=== PATIENT | male | born 1980 | race American Indian/Alaskan Native ===

== ENCOUNTER 2016-12-25 21:47 | Inpatient (IN) | payer MEDICAID ==
[2016-12-25] MEDS ORDERED: Albuterol/Ipratropium 3.0-0.5 MG/3 ML Neb Soln NEB ONE (22:03)
[2016-12-25] MEDS ORDERED: Albuterol 0.083% 2.5 MG/3 ML Neb Soln NEB ONE (22:47)
[2016-12-25] MEDS ORDERED: predniSONE 20 MG Tab PO ONE (22:47)
[2016-12-25] MEDS ORDERED: Amoxicillin/Clavulanate K 875-125 MG Tab PO ONE (22:49)
--- NOTE | 2016-12-25 23:23 | EDM.PDOC ---
ED HPI GENERAL MEDICAL PROBLEM - General Chief Complaint: Respiratory Problem Stated Complaint: hard time breathing Time Seen by Provider: 12/25/16 22:10 Source of Information: Reports: Patient History Limitations: Reports: No Limitations - History of Present Illness INITIAL COMMENTS - FREE TEXT/NARRATIVE: c/o flare of asthma starting friday. Uncontrolled with inhaler. Chills no fever, Cough occasional productive Duration: Week(s): Location: Reports: Chest Severity: Moderate Associated Symptoms: Reports: Cough, Shortness of Breath - Related Data Allergies Allergy/AdvReac Type Severity Reaction Status Date / Time No Known Allergies Allergy Verified 12/25/16 22:00 Home Meds: Home Meds Albuterol Sulfate [Ventolin Hfa] 0 gm IH ASDIRECTED 12/25/16 [History] Fluticasone/Salmeterol [Advair Diskus 100-50] 1 puff INH ASDIRECTED 12/25/16 [ History] Montelukast Sodium [Singulair] 0 mg PO ASDIRECTED 12/25/16 [History] Past Medical History HEENT History: Reports: None Cardiovascular History: Reports: None Respiratory History: Reports: Asthma Gastrointestinal History: Reports: None Genitourinary History: Reports: None Musculoskeletal History: Reports: None Neurological History: Reports: None Psychiatric History: Reports: None Endocrine/Metabolic History: Reports: None Hematologic History: Reports: None Immunologic History: Reports: None Oncologic (Cancer) History: Reports: None Dermatologic History: Reports: None Social & Family History - Tobacco Use Smoking Status *Q: Never Smoker - Caffeine Use Caffeine Use: Reports: Coffee - Recreational Drug Use Recreational Drug Use: No ED ROS GENERAL - Review of Systems Review Of Systems: See Below Constitutional: Reports: Chills HEENT: Reports: Sinus Problem Respiratory: Reports: Shortness of Breath, Wheezing, Cough Cardiovascular: Reports: No Symptoms Endocrine: Reports: No Symptoms GI/Abdominal: Reports: No Symptoms Musculoskeletal: Reports: No Symptoms Skin: Reports: No Symptoms Neurological: Reports: No Symptoms Psychiatric: Reports: No Symptoms ED EXAM, GENERAL - Physical Exam Exam: See Below Exam Limited By: No Limitations General Appearance: Alert, Moderate Distress Eye Exam: Bilateral Eye: PERRL Ears: Normal External Exam, Normal TMs Nose: Normal Inspection Throat/Mouth: Normal Inspection Head: Atraumatic, Normocephalic Neck: Normal Inspection, Full Range of Motion Respiratory/Chest: Crackles (right), Wheezing. No: Normal Breath Sounds Cardiovascular: Regular Rate, Rhythm, Tachycardia Back Exam: Normal Inspection Extremities: Normal Inspection Neurological: Alert, Oriented, Normal Cognition Skin Exam: Warm, Dry, Intact, Normal Color, Tattoo(s) Course - Vital Signs Last Recorded V/S: Last Vital Signs Temp 100 F 12/26/16 02:02 Pulse 129 H 12/26/16 02:02 Resp 30 H 12/26/16 02:02 BP 140/77 12/26/16 02:02 Pulse Ox 95 12/26/16 02:02 - Orders/Labs/Meds Orders: Active Orders 24 hr Category Date Time Status RT Aerosol Therapy [RC] ASDIRECTED Care 12/25/16 22:03 Active RT Aerosol Therapy [RC] ASDIRECTED Care 12/25/16 22:47 Active RT Aerosol Therapy [RC] ASDIRECTED Care 12/26/16 01:04 Active CULTURE BLOOD [BC] Stat Lab 12/25/16 23:31 Received CULTURE BLOOD [BC] Stat Lab 12/25/16 23:40 Received Sodium Chloride 0.9% [Normal Saline] 1,000 ml Med 12/26/16 01:15 Active IV ASDIRECTED Blood Culture x2 Reflex Set [OM.PC] Stat Oth 12/25/16 23:24 Ordered Medication Orders Albuterol (Proventil Neb Soln) 2.5 mg NEB Q6H PRN PRN Reason: sob Albuterol/Ipratropium (Duoneb 3.0-0.5 Mg/3 Ml) 3 ml NEB Q8HRRT [facility] Budesonide (Pulmicort) 0.5 mg NEB BIDRT [facility] Docusate Sodium (Colace) 100 mg PO BID PRN PRN Reason: Constipation Enoxaparin Sodium (Lovenox) 40 mg SUBCUT DAILY JERMAINE Sodium Chloride (Normal Saline) 1,000 mls @ 125 mls/hr IV ASDIRECTED JERMAINE Last Admin: 12/26/16 02:33 Dose: 125 mls/hr Infusion: 12/26/16 02:16 Dose: 999 mls/hr Admin: 12/26/16 01:15 Dose: 999 mls/hr Azithromycin 500 mg/ Sodium (Chloride) 250 mls @ 250 mls/hr IV Q24H [facility] Last Admin: 12/26/16 03:38 Dose: 250 mls/hr Ceftriaxone Sodium 1 gm/ (Sodium Chloride) 50 mls @ 100 mls/hr IV Q24H [facility]INE Last Admin: 12/26/16 02:33 Dose: 100 mls/hr Lorazepam (Ativan) 1 mg PO Q6H PRN PRN Reason: Anxiety Methylprednisolone Sodium Succinate (Solu-Medrol) 40 mg IVPUSH Q8H [facility] Montelukast Sodium (Singulair) 10 mg PO DAILY JERMAINE Ondansetron HCl (Zofran Odt) 4 mg PO Q4H PRN PRN Reason: nausea, able to take PO Sodium Chloride (Saline Flush) 10 ml FLUSH ASDIRECTED PRN PRN Reason: Keep Vein Open Zolpidem Tartrate (Ambien) 5 mg PO BEDTIME PRN PRN Reason: Sleep Labs: Laboratory Tests 12/25/16 12/25/16 12/25/16 Range/Units 00:43 23:31 23:31 WBC 11.9 H (5.0-10.0) 10^3/uL RBC 5.09 (4.6-6.2) 10^6/uL Hgb 14.6 (14.0-18.0) g/dL Hct 44.8 (40.0-54.0) % MCV 88.0 (80-100) fL MCH 28.7 (27.0-34.0) pg MCHC 32.6 L (33.0-35.0) g/dL Plt Count 305 (150-450) 10^3/uL Neut % (Auto) 82.6 H (42.2-75.2) % Lymph % (Auto) 10.3 L (20.5-50.1) % [place] % (Auto) 5.5 (2-8) % Eos % (Auto) 1.3 (1.0-3.0) % Baso % (Auto) 0.3 (0.0-1.0) % D-Dimer, Quantitative 378 (0-400) ng/mL ABG pH (7.35-7.45) ABG pCO2 (35-45) mmHg ABG pO2 (70-100) mmHg ABG HCO3 (22-26) mmol/L ABG O2 Saturation (95-100) % ABG Base Excess ((-2)-(+3)) mmol/L Presley Test O2 Delivery Device Sodium 140 (135-145) mmol/L Potassium 4.3 (3.6-5.0) mmol/L Chloride 103 (101-111) mmol/L Carbon Dioxide 30.0 (21.0-31.0) mmol/L Anion Gap 11.3 BUN 9 (7-18) mg/dL Creatinine 0.8 (0.6-1.3) mg/dL Est Cr Clr Drug Dosing 130.54 mL/min Estimated GFR (MDRD) > 60 BUN/Creatinine Ratio 11.25 Glucose 116 H (74-105) mg/dL Calcium 8.8 (8.4-10.2) mg/dl Total Bilirubin 0.3 (0.2-1.0) mg/dL AST 32 (10-42) IU/L ALT 33 (10-60) IU/L Alkaline Phosphatase 61 (42-121) IU/L C-Reactive Protein (0.0-1.3) mg/dL Total Protein 7.7 (6.7-8.2) g/dl Albumin 3.9 (3.2-5.5) g/dl Globulin 3.8 Albumin/Globulin Ratio 1.03 12/25/16 12/26/16 Range/Units 23:31 01:00 WBC (5.0-10.0) 10^3/uL RBC (4.6-6.2) 10^6/uL Hgb (14.0-18.0) g/dL Hct (40.0-54.0) % MCV (80-100) fL MCH (27.0-34.0) pg MCHC (33.0-35.0) g/dL Plt Count (150-450) 10^3/uL Neut % (Auto) (42.2-75.2) % Lymph % (Auto) (20.5-50.1) % [place] % (Auto) (2-8) % Eos % (Auto) (1.0-3.0) % Baso % (Auto) (0.0-1.0) % D-Dimer, Quantitative (0-400) ng/mL ABG pH 7.43 (7.35-7.45) ABG pCO2 35 (35-45) mmHg ABG pO2 58 L (70-100) mmHg ABG HCO3 22.7 (22-26) mmol/L ABG O2 Saturation 91 L (95-100) % ABG Base Excess -1 ((-2)-(+3)) mmol/L Presley Test Positive O2 Delivery Device Nasal cannula Sodium (135-145) mmol/L Potassium (3.6-5.0) mmol/L Chloride (101-111) mmol/L Carbon Dioxide (21.0-31.0) mmol/L Anion Gap BUN (7-18) mg/dL Creatinine (0.6-1.3) mg/dL Est Cr Clr Drug Dosing mL/min Estimated GFR (MDRD) BUN/Creatinine Ratio Glucose (74-105) mg/dL Calcium (8.4-10.2) mg/dl Total Bilirubin (0.2-1.0) mg/dL AST (10-42) IU/L ALT (10-60) IU/L Alkaline Phosphatase (42-121) IU/L C-Reactive Protein 3.1 H (0.0-1.3) mg/dL Total Protein (6.7-8.2) g/dl Albumin (3.2-5.5) g/dl Globulin Albumin/Globulin Ratio Meds: Medications Generic Name Dose Route Start Last Admin Trade Name Freq PRN Reason Stop Dose Admin Albuterol 2.5 mg 12/26/16 02:00 Proventil Neb Soln NEB Q6H PRN sob Albuterol/Ipratropium 3 ml 12/26/16 07:00 Duoneb 3.0-0.5 Mg/3 Ml NEB Q8HRRT JERMAINE Budesonide 0.5 mg 12/26/16 07:00 Pulmicort NEB BIDRT JERMAINE Docusate Sodium 100 mg 12/26/16 02:02 Colace PO BID PRN Constipation Enoxaparin Sodium 40 mg 12/26/16 09:00 Lovenox SUBCUT DAILY JERMAINE Sodium Chloride 1,000 mls @ 125 mls/hr 12/26/16 01:15 12/26/16 02:33 Normal Saline IV 125 mls/hr ASDIRECTED JERMAINE Administration Azithromycin 500 mg/ Sodium 250 mls @ 250 mls/hr 12/26/16 03:00 12/26/16 03: 38 Chloride IV 250 mls/hr Q24H JERMAINE Administration Ceftriaxone Sodium 1 gm/ 50 mls @ 100 mls/hr 12/26/16 02:00 12/26/16 02:33 Sodium Chloride IV 100 mls/hr Q24H JER[facility]INE Administration Lorazepam 1 mg 12/26/16 01:58 Ativan PO Q6H PRN Anxiety Methylprednisolone Sodium Succinate 40 mg 12/26/16 07:00 Solu-Medrol IVPUSH Q8H JERMAINE Montelukast Sodium 10 mg 12/26/16 09:00 Singulair PO DAILY JERMAINE Ondansetron HCl 4 mg 12/26/16 02:02 Zofran Odt PO Q4H PRN nausea, able to take PO Sodium Chloride 10 ml 12/26/16 02:02 Saline Flush FLUSH ASDIRECTED PRN Keep Vein Open Zolpidem Tartrate 5 mg 12/26/16 02:02 Ambien PO BEDTIME PRN Sleep Discontinued Medications Generic Name Dose Route Start Last Admin Trade Name Freq PRN Reason Stop Dose Admin Acetaminophen 650 mg 12/25/16 23:24 12/25/16 23:43 Tylenol PO 12/25/16 23:25 650 mg NOW ONE Administration Albuterol 2.5 mg 12/25/16 22:47 12/25/16 23:[address] [facility] 12/25/16 22:48 2.5 mg ONETIME ONE Administration Albuterol 2.5 mg 12/26/16 01:04 12/26/16 01:[address] [facility] 12/26/16 01:05 2.5 mg ONETIME ONE Administration Albuterol/Ipratropium 3 ml 12/25/16 22:03 12/25/16 22:07 Duoneb 3.0-0.5 Mg/[address] [facility] 12/25/16 22:04 3 ml ONETIME ONE Administration Amoxicillin/Clavulanate Potassium 1 tab 12/25/16 22:49 12/25/16 23:23 Augmentin 875 Mg/125 Mg PO 12/25/16 22:50 1 tab ONETIME ONE Administration Sodium Chloride 1,000 mls @ 999 mls/hr 12/25/16 23:53 12/25/16 23:57 Normal Saline IV 12/26/16 00:53 999 mls/hr .BOLUS ONE Administration Ibuprofen 600 mg 12/26/16 00:27 12/26/16 00:33 Motrin PO 12/26/16 00:28 600 mg ONETIME ONE Administration Lorazepam 1 mg 12/26/16 00:27 12/26/16 00:33 Ativan IVPUSH 12/26/16 00:28 1 mg ONETIME ONE Administration Methylprednisolone Sodium Succinate 62.5 mg 12/26/16 01:10 12/26/16 01:15 Solu-Medrol IVPUSH 12/26/16 01:11 62.5 mg ONETIME ONE Administration Prednisone 40 mg 12/25/16 22:47 12/25/16 23:23 Prednisone PO 12/25/16 22:48 40 mg ONETIME ONE Administration - Re-Assessments/Exams Free Text/Narrative Re-Assessment/Exam: 12/26/16 01:42 fever uncontrolled with tylenol Ibuprofen given, brief responses to neb treatment, required additional. Tachy respirations and heartrate. 2 liters IVF in ED. Dr. Domonique ríos In ED to assess. Departure - Departure Time of Disposition: 01:35 Disposition: Admitted As Inpatient 65 Condition: undetermined Clinical Impression: Exacerbation of asthma URI (upper respiratory infection) Qualifiers: URI type: unspecified URI Qualified Code(s): J06.9 - Acute upper respiratory infection, unspecified - Discharge Information - My Orders Last 24 Hours: My Active Orders 12/25/16 22:03 RT Aerosol Therapy [RC] ASDIRECTED 12/25/16 22:47 RT Aerosol Therapy [RC] ASDIRECTED 12/25/16 23:24 Blood Culture x2 Reflex Set [OM.PC] Stat 12/25/16 23:31 CULTURE BLOOD [BC] Stat 12/25/16 23:40 CULTURE BLOOD [BC] Stat 12/26/16 01:04 RT Aerosol Therapy [RC] ASDIRECTED 12/26/16 01:15 Sodium Chloride 0.9% [Normal Saline] 1,000 ml IV ASDIRECTED - Assessment/Plan Last 24 Hours: My Active Orders 12/25/16 22:03 RT Aerosol Therapy [RC] ASDIRECTED 12/25/16 22:47 RT Aerosol Therapy [RC] ASDIRECTED 12/25/16 23:24 Blood Culture x2 Reflex Set [OM.PC] Stat 12/25/16 23:31 CULTURE BLOOD [BC] Stat 12/25/16 23:40 CULTURE BLOOD [BC] Stat 12/26/16 01:04 RT Aerosol Therapy [RC] ASDIRECTED 12/26/16 01:15 Sodium Chloride 0.9% [Normal Saline] 1,000 ml IV ASDIRECTED
[2016-12-25] MEDS ORDERED: Acetaminophen 325 MG Tab PO ONE (23:24)
[2016-12-25] MEDS ORDERED: Sodium Chloride 0.9% 1,000 ML IV ONE (23:53)
[2016-12-26 00:17] LABS: CHLORIDE,CL 103 mmol/L (101-111); SODIUM,NA 140 mmol/L (135-145)
[2016-12-26] MEDS ORDERED: Ibuprofen 600 MG Tab PO ONE (00:27)
[2016-12-26] MEDS ORDERED: LORazepam 2 MG/ML Syringe IVPUSH ONE (00:27)
[2016-12-26] MEDS ORDERED: Albuterol 0.083% 2.5 MG/3 ML Neb Soln NEB ONE (01:04)
[2016-12-26 01:07] LABS: BASE EXCESS ARTERIAL -1 mmol/L ((-2)-(+3)); BICARBONATE,ARTERIAL 22.7 mmol/L (22-26); O2 DELIVERY DEVICE NASAL CANNULA; O2 SATURATION ARTERIAL 91 % (95-100); PCO2 ARTERIAL 35 mmHg (35-45); PO2 ARTERIAL 58 mmHg (70-100)
[2016-12-26 01:10] LABS: ALLEN TEST POSITIVE
[2016-12-26] MEDS ORDERED: methylPREDNISolone Sodium Succinate 125 MG/2 ML SDV IVPUSH ONE (01:10)
[2016-12-26] MEDS: Sodium Chloride 0.9% 1,000 ML IV SCH ×4 (01:15→20:17)
[2016-12-26] MEDS ORDERED: Albuterol 0.083% 2.5 MG/3 ML Neb Soln NEB PRN (02:00)
[2016-12-26] MEDS ORDERED: Ondansetron 4 MG Tab.DIS PO PRN (02:02)
[2016-12-26] MEDS ORDERED: Zolpidem 5 MG Tab PO PRN (02:02)
[2016-12-26] MEDS ORDERED: Docusate Sodium 100 MG Cap PO PRN (02:02)
--- NOTE | 2016-12-26 02:16 | PCM.HP ---
H&P History of Present Illness - General Date of Service: 12/26/16 Admit Problem/Dx: Admission Diagnosis/Problem Admission Diagnosis/Problem Asthma 36-year-old gentleman with a history of asthma and anxiety presented with shortness of breath, cough, subjective fever. Source of Information: Patient - History of Present Illness Initial Comments - Free Text/Narative: Symptoms started on 20 December. He has no sick contact at home. He Tylenol at home to help with his symptoms. In the next few days symptoms on and off better or worse he tried to go to her that because of shortness of breath he had to go home early. He reports a cough and green sputum. He has chest pain when coughing but otherwise no chest pain no abdominal pain. He had one episode of loose bowel movement. He has no lower extremity swelling. The shortness of breath the past continued and the patient came to the emergency room. - Related Data Allergies/Adverse Reactions: Allergies Allergy/AdvReac Type Severity Reaction Status Date / Time No Known Allergies Allergy Verified 12/25/16 22:00 Home Medications: Home Meds Albuterol Sulfate [Ventolin Hfa] 0 gm IH ASDIRECTED 12/25/16 [History] Fluticasone/Salmeterol [Advair Diskus 100-50] 1 puff INH ASDIRECTED 12/25/16 [ History] Montelukast Sodium [Singulair] 0 mg PO ASDIRECTED 12/25/16 [History] Past Medical History HEENT History: Reports: None Cardiovascular History: Reports: None Respiratory History: Reports: Asthma Gastrointestinal History: Reports: None Genitourinary History: Reports: None Musculoskeletal History: Reports: None Neurological History: Reports: None Psychiatric History: Reports: None Endocrine/Metabolic History: Reports: None Hematologic History: Reports: None Immunologic History: Reports: None Oncologic (Cancer) History: Reports: None Dermatologic History: Reports: None Social & Family History - Tobacco Use Smoking Status *Q: Never Smoker - Caffeine Use Caffeine Use: Reports: Coffee - Recreational Drug Use Recreational Drug Use: No H&P Review of Systems - Review of Systems: Review Of Systems: See Below General: Reports: Fever Pulmonary: Reports: Shortness of Breath, Wheezing Cardiovascular: Reports: Chest Pain (with cough) Gastrointestinal: Denies: Abdominal Pain Musculoskeletal: Denies: Neck Pain Psychiatric: Reports: Anxiety Neurological: Denies: Confusion Exam - Exam Exam: See Below - Vital Signs Vital Signs: Last Vital Signs Temp 39.2 C H 12/26/16 01:25 Pulse 128 H 12/26/16 01:28 Resp 44 H 12/26/16 01:30 BP 118/73 12/26/16 01:25 Pulse Ox 93 L 12/26/16 01:30 Weight: 95.254 kg - Exam Quality Assessment: Supplemental Oxygen General: Alert, Oriented Neck: Supple Lungs: Decreased Breath Sounds, Wheezing, Other (increased respiratory rate) Cardiovascular: Regular Rate, Tachycardia Abdomen: Normal Bowel Sounds, Soft Back Exam: Normal Inspection, Full Range of Motion, NT Extremities: 3, Normal Inspection, 10 Skin: Warm, Dry, Intact Neurological: Cranial Nerves Intact, Reflexes Equal Bilateral Neuro Extensive - Mental Status: Alert, Oriented x3, Normal Cognition, Other ( anxious) Neuro Extensive - Motor, Sensory, Reflexes: Normal Gait Psychiatric: Alert, Normal Mood, Anxious - Patient Data Result Diagrams: 12/25/16 23:31 12/25/16 23:31 Imaging Impressions last 24 hrs: chest x-ray by my reading shows no apparent infiltrate, no congestive heart failure. EKG INTERPRETATION EKG Date: 12/26/16 Rhythm: NSR *Q Meaningful Use (ADM) - VTE *Q VTE Criteria *Q: - Stroke *Q Stroke Criteria *Q: - AMI *Q AMI Criteria *Q: - Problem List (1) Exacerbation of asthma SNOMED Code(s): 498221628 ICD Code: J45.901 - UNSPECIFIED ASTHMA WITH (ACUTE) EXACERBATION Status: Acute Current Visit: Yes Problem List Initiated/Reviewed/Updated: Yes Orders Last 24hrs: Active Orders 24 hr Category Date Time Status Ambulate [RC] ASDIRECTED Care 12/26/16 02:02 Ordered Antiembolic Devices [RC] PER UNIT ROUTINE Care 12/26/16 02:06 Ordered Oxygen Therapy [RC] PRN Care 12/26/16 02:02 Ordered Peripheral IV Care [RC] . DIRECTED Care 12/26/16 02:06 Ordered RT Aerosol Therapy [RC] ASDIRECTED Care 12/26/16 01:59 Ordered VTE/DVT Education [RC] PER UNIT ROUTINE Care 12/26/16 02:02 Ordered Vital Signs [RC] Q4H Care 12/26/16 02:02 Ordered Regular Diet [DIET] Diet 12/26/16 Breakfast Ordered BASIC METABOLIC PANEL,BMP [CHEM] AM Lab 12/26/16 05:11 Ordered BASIC METABOLIC PANEL,BMP [CHEM] AM Lab 12/27/16 05:11 Ordered CBC WITH AUTO DIFF [HEME] AM Lab 12/26/16 05:11 Ordered CBC WITH AUTO DIFF [HEME] AM Lab 12/27/16 05:11 Ordered CULTURE SPUTUM + SMEAR [RM] Routine Lab 12/26/16 01:53 Uncollected MAGNESIUM [CHEM] AM Lab 12/26/16 05:11 Ordered Albuterol [Proventil Neb Soln] Med 12/26/16 02:00 Ordered 2.5 mg NEB Q6HRRT PRN Albuterol/Ipratropium [DuoNeb 3.0-0.5 MG/3 ML] Med 12/26/16 07:00 Ordered 3 ml NEB Q8HRRT Azithromycin [Zithromax] 500 mg Med 12/26/16 02:00 Ordered Sodium Chloride 0.9% [Normal Saline] 250 ml IV Q24H Budesonide [Pulmicort] Med 12/26/16 07:00 Ordered 0.5 mg NEB BIDRT Docusate Sodium [Colace] Med 12/26/16 02:02 Ordered 100 mg PO BID PRN Enoxaparin [Lovenox] Med 12/26/16 09:00 Ordered 40 mg SUBCUT DAILY LORazepam [Ativan] Med 12/26/16 01:58 Ordered 1 mg PO Q6H PRN Montelukast Sodium [Singulair] Med 12/26/16 09:00 Ordered 10 mg PO DAILY Ondansetron [Zofran ODT] Med 12/26/16 02:02 Ordered 4 mg PO Q4H PRN Sodium Chloride 0.9% [Saline Flush] Med 12/26/16 02:02 Ordered 10 ml FLUSH ASDIRECTED PRN Zolpidem [Ambien] Med 12/26/16 02:02 Ordered 5 mg PO BEDTIME PRN cefTRIAXone [Rocephin] 1 gm Med 12/26/16 02:00 Ordered Sodium Chloride 0.9% [Normal Saline] 50 ml IV Q24H methylPREDNISolone Sod Succ [Solu-MEDROL] Med 12/26/16 07:00 Ordered 40 mg IVPUSH Q8H Peripheral IV Insertion Adult [OM.PC] Routine Oth 12/26/16 02:02 Ordered Sequential Compression Device [OM.PC] Per Unit Routine Oth 12/26/16 02:03 Ordered Resuscitation Status Routine Resus Stat 12/26/16 02:02 Ordered Medication Orders Albuterol (Proventil Neb Soln) 2.5 mg NEB Q6H PRN PRN Reason: sob Albuterol/Ipratropium (Duoneb 3.0-0.5 Mg/3 Ml) 3 ml NEB Q8HRRT JERMAINE Budesonide (Pulmicort) 0.5 mg NEB BIDRT JERMAINE Docusate Sodium (Colace) 100 mg PO BID PRN PRN Reason: Constipation Enoxaparin Sodium (Lovenox) 40 mg SUBCUT DAILY JERMAINE Sodium Chloride (Normal Saline) 1,000 mls @ 125 mls/hr IV ASDIRECTED JERMAINE Last Admin: 12/26/16 01:15 Dose: 999 mls/hr Azithromycin 500 mg/ Sodium (Chloride) 250 mls @ 250 mls/hr IV Q24H [facility] Ceftriaxone Sodium 1 gm/ (Sodium Chloride) 50 mls @ 100 mls/hr IV Q24H [facility] Lorazepam (Ativan) 1 mg PO Q6H PRN PRN Reason: Anxiety Methylprednisolone Sodium Succinate (Solu-Medrol) 40 mg IVPUSH Q8H JERMAINE Montelukast Sodium (Singulair) 10 mg PO DAILY JERMAINE Ondansetron HCl (Zofran Odt) 4 mg PO Q4H PRN PRN Reason: nausea, able to take PO Sodium Chloride (Saline Flush) 10 ml FLUSH ASDIRECTED PRN PRN Reason: Keep Vein Open Zolpidem Tartrate (Ambien) 5 mg PO BEDTIME PRN PRN Reason: Sleep Assessment/Plan Comment:: Symptoms started on 20 December. He presented with progressive shortness of breath, fever, cough yellow sputum. 1. acute asthma exacerbation with acute hypoxemic respiratory failure The patient has been on Advair and albuterol p.r.n. inhaler at home. I will start the patient on Pulmicort, scheduled DuoNeb, p.r.n. albuterol nebulizer Given systemic steroids with IV Solu Medrol Supplemental oxygen as needed 2. acute bronchitis Obtain blood culture, sputum culture Treat empirically with azithromycin and Rocephin 3. Anxiety Present nebulizers and hospital stay might exacerbate this condition Will use as needed Ativan 4. DVT prophylaxis will be with Lovenox
[2016-12-26] MEDS: cefTRIAXone 1 GM in Sodium Chloride 0.9% 50 ML IV SCH (02:33)
[2016-12-26] MEDS: Azithromycin 500 MG in Sodium Chloride 0.9% 250 ML IV SCH (03:38)
[2016-12-26 07:22] LABS: CHLORIDE,CL 107 mmol/L (101-111); SODIUM,NA 140 mmol/L (135-145)
[2016-12-26] MEDS: Budesonide 0.5 MG/2 ML Neb Susp NEB SCH ×2 (07:22→18:32)
[2016-12-26] MEDS: Albuterol/Ipratropium 3.0-0.5 MG/3 ML Neb Soln NEB SCH ×3 (07:22→23:17)
[2016-12-26] MEDS: Montelukast 10 MG Tab PO SCH (08:39)
[2016-12-26] MEDS: methylPREDNISolone Sodium Succinate 40 MG/1 ML SDV IVPUSH SCH ×3 (08:40→23:17)
[2016-12-26] MEDS: Enoxaparin 40 MG/0.4 ML Syringe SUBCUT SCH (08:41)
[2016-12-26] MEDS: Insulin Aspart 100 Units/ML 3 ML Pen SUBCUT SCH ×3 (12:48→21:29)
[2016-12-26] MEDS: LORazepam 1 MG Tab PO PRN ×2 (13:03→20:37)
[2016-12-27] MEDS: cefTRIAXone 1 GM in Sodium Chloride 0.9% 50 ML IV SCH (02:10)
[2016-12-27] MEDS: Azithromycin 500 MG in Sodium Chloride 0.9% 250 ML IV SCH (02:59)
[2016-12-27] MEDS: Acetaminophen 325 MG Tab PO PRN ×3 (05:36→18:16)
[2016-12-27] MEDS: Sodium Chloride 0.9% 1,000 ML IV SCH (06:20)
[2016-12-27 06:58] LABS: CHLORIDE,CL 107 mmol/L (101-111); SODIUM,NA 138 mmol/L (135-145)
[2016-12-27] MEDS: LORazepam 1 MG Tab PO PRN (07:08)
[2016-12-27] MEDS: Albuterol/Ipratropium 3.0-0.5 MG/3 ML Neb Soln NEB SCH ×3 (07:48→23:16)
[2016-12-27] MEDS: Budesonide 0.5 MG/2 ML Neb Susp NEB SCH ×2 (08:03→17:01)
[2016-12-27] MEDS: Insulin Aspart 100 Units/ML 3 ML Pen SUBCUT SCH ×4 (08:16→22:24)
[2016-12-27] MEDS: methylPREDNISolone Sodium Succinate 40 MG/1 ML SDV IVPUSH SCH ×2 (09:04→22:30)
[2016-12-27] MEDS ORDERED: cefTRIAXone 1 GM in Sodium Chloride 0.9% 50 ML IV SCH (09:30)
[2016-12-27] MEDS: Montelukast 10 MG Tab PO SCH (10:10)
[2016-12-27] MEDS: Venlafaxine 37.5 MG Cap.ER PO SCH (10:11)
[2016-12-27] MEDS: Enoxaparin 40 MG/0.4 ML Syringe SUBCUT SCH (10:13)
--- NOTE | 2016-12-27 11:19 | PCM.PN ---
- General Info Date of Service: 12/27/16 Admission Dx/Problem (Free Text): Admission Diagnosis/Problem Admission Diagnosis/Problem Asthma 36-year-old gentleman with a history of asthma and anxiety presented with shortness of breath, cough, subjective fever. Functional Status: Reports: pain controlled - Review of Systems General: Denies: Fever Pulmonary: Reports: shortness of breath (still present but improved), cough (my) , wheezing (still present but improved) Gastrointestinal: Denies: Abdominal pain Genitourinary: Denies: dysuria Neurological: Denies: Confusion Psychiatric: Denies: depression - Patient Data Vitals - most recent: Last Vital Signs Temp 36.5 C 12/27/16 07:00 Pulse 82 12/27/16 08:00 Resp 20 12/27/16 03:38 BP 147/97 H 12/27/16 07:00 Pulse Ox 96 12/27/16 08:00 Weight - most recent: 95.254 kg I&O - last 24 hours: Intake & Output 12/26/16 12/27/16 12/27/16 22:59 06:59 14:59 Intake Total 2351 1348 Balance 2351 1348 Lab Results last 24 hrs: Laboratory Results - last 24 hr 12/26/16 12/26/16 12/26/16 Range/Units 11:18 17:02 21:24 WBC (5.0-10.0) 10^3/uL RBC (4.6-6.2) 10^6/uL Hgb (14.0-18.0) g/dL Hct (40.0-54.0) % MCV (80-100) fL MCH (27.0-34.0) pg MCHC (33.0-35.0) g/dL Plt Count (150-450) 10^3/uL Neut % (Auto) (42.2-75.2) % Lymph % (Auto) (20.5-50.1) % [place] % (Auto) (2-8) % Eos % (Auto) (1.0-3.0) % Baso % (Auto) (0.0-1.0) % Add Manual Diff Neutrophils % (Manual) % Band Neutrophils % % Lymphocytes % (Manual) % Monocytes % (Manual) % Sodium (135-145) mmol/L Potassium (3.6-5.0) mmol/L Chloride (101-111) mmol/L Carbon Dioxide (21.0-31.0) mmol/L Anion Gap BUN (7-18) mg/dL Creatinine (0.6-1.3) mg/dL Est Cr Clr Drug Dosing mL/min Estimated GFR (MDRD) Glucose (74-105) mg/dL POC Glucose 158 H 176 H 207 H (70-105) mg/dl Calcium (8.4-10.2) mg/dl 12/27/16 12/27/16 12/27/16 Range/Units 06:30 06:30 07:46 WBC 22.7 H (5.0-10.0) 10^3/uL RBC 4.45 L (4.6-6.2) 10^6/uL Hgb 13.0 L (14.0-18.0) g/dL Hct 39.7 L (40.0-54.0) % MCV 89.2 (80-100) fL MCH 29.2 (27.0-34.0) pg MCHC 32.7 L (33.0-35.0) g/dL Plt Count 286 (150-450) 10^3/uL Neut % (Auto) 90.5 H (42.2-75.2) % Lymph % (Auto) 5.2 L (20.5-50.1) % [place] % (Auto) 4.3 (2-8) % Eos % (Auto) 0.0 L (1.0-3.0) % Baso % (Auto) 0.0 (0.0-1.0) % Add Manual Diff Yes Neutrophils % (Manual) 91 % Band Neutrophils % 2 % Lymphocytes % (Manual) 4 % Monocytes % (Manual) 3 % Sodium 138 (135-145) mmol/L Potassium 3.8 (3.6-5.0) mmol/L Chloride 107 (101-111) mmol/L Carbon Dioxide 23.0 (21.0-31.0) mmol/L Anion Gap 11.8 BUN 11 (7-18) mg/dL Creatinine 0.7 (0.6-1.3) mg/dL Est Cr Clr Drug Dosing 149.19 mL/min Estimated GFR (MDRD) > 60 Glucose 168 H (74-105) mg/dL POC Glucose 152 H (70-105) mg/dl Calcium 8.1 L (8.4-10.2) mg/dl Pankaj Results last 24 hrs: Microbiology 12/26/16 07:46 Gram Stain - Final Sputum - Expectorated Sputum Culture - Preliminary Normal Myrna Med Orders - Current: Current Medications Acetaminophen (Tylenol) 650 mg PO Q4H PRN PRN Reason: Pain Last Admin: 12/27/16 10:11 Dose: 650 mg Albuterol (Proventil Neb Soln) 2.5 mg NEB Q6H PRN PRN Reason: sob Last Admin: 12/27/16 03:34 Dose: 2.5 mg Albuterol/Ipratropium (Duoneb 3.0-0.5 Mg/3 Ml) 3 ml NEB Q8HRRT [facility] Last Admin: 12/27/16 07:48 Dose: 3 ml Budesonide (Pulmicort) 0.5 mg NEB BIDRT [facility] Last Admin: 12/27/16 08:03 Dose: 0.5 mg Docusate Sodium (Colace) 100 mg PO BID PRN PRN Reason: Constipation Enoxaparin Sodium (Lovenox) 40 mg SUBCUT DAILY [facility] Last Admin: 12/27/16 10:13 Dose: 40 mg Sodium Chloride (Normal Saline) 1,000 mls @ 125 mls/hr IV ASDIRECTED [facility] Last Admin: 12/27/16 06:20 Dose: 125 mls/hr Azithromycin 500 mg/ Sodium (Chloride) 250 mls @ 250 mls/hr IV Q24H [facility] Last Admin: 12/27/16 02:59 Dose: 250 mls/hr Ceftriaxone Sodium 1 gm/ (Sodium Chloride) 50 mls @ 100 mls/hr IV Q24H [facility] Insulin Aspart (Novolog) 0 unit SUBCUT QIDACANDBED [facility] PRN Reason: Protocol Last Admin: 12/27/16 08:16 Dose: 2 units Lorazepam (Ativan) 1 mg PO Q6H PRN PRN Reason: Anxiety Last Admin: 12/27/16 07:08 Dose: 1 mg Methylprednisolone Sodium Succinate (Solu-Medrol) 40 mg IVPUSH Q12H [facility] Montelukast Sodium (Singulair) 10 mg PO DAILY [facility] Last Admin: 12/27/16 10:10 Dose: 10 mg Ondansetron HCl (Zofran Odt) 4 mg PO Q4H PRN PRN Reason: nausea, able to take PO Sodium Chloride (Saline Flush) 10 ml FLUSH ASDIRECTED PRN PRN Reason: Keep Vein Open Venlafaxine HCl (Effexor Xr) 37.5 mg PO DAILY [facility] Last Admin: 12/27/16 10:11 Dose: 37.5 mg Zolpidem Tartrate (Ambien) 5 mg PO BEDTIME PRN PRN Reason: Sleep Discontinued Medications Acetaminophen (Tylenol) 650 mg PO NOW ONE Stop: 12/25/16 23:25 Last Admin: 12/25/16 23:43 Dose: 650 mg Albuterol (Proventil Neb Soln) 2.5 mg NEB ONETIME ONE Stop: 12/25/16 22:48 Last Admin: 12/25/16 23:24 Dose: 2.5 mg Albuterol (Proventil Neb Soln) 2.5 mg NEB ONETIME ONE Stop: 12/26/16 01:05 Last Admin: 12/26/16 01:15 Dose: 2.5 mg Albuterol/Ipratropium (Duoneb 3.0-0.5 Mg/3 Ml) 3 ml NEB ONETIME ONE Stop: 12/25/16 22:04 Last Admin: 12/25/16 22:07 Dose: 3 ml Amoxicillin/Clavulanate Potassium (Augmentin 875 Mg/125 Mg) 1 tab PO ONETIME ONE Stop: 12/25/16 22:50 Last Admin: 12/25/16 23:23 Dose: 1 tab Sodium Chloride (Normal Saline) 1,000 mls @ 999 mls/hr IV .BOLUS ONE Stop: 12/26/16 00:53 Last Admin: 12/25/16 23:57 Dose: 999 mls/hr Ceftriaxone Sodium 1 gm/ (Sodium Chloride) 50 mls @ 100 mls/hr IV Q24H [facility] Last Admin: 12/27/16 02:10 Dose: 100 mls/hr Ceftriaxone Sodium 1 gm/ (Sodium Chloride) 50 mls @ 100 mls/hr IV Q24H [facility] Ibuprofen (Motrin) 600 mg PO ONETIME ONE Stop: 12/26/16 00:28 Last Admin: 12/26/16 00:33 Dose: 600 mg Lorazepam (Ativan) 1 mg IVPUSH ONETIME ONE Stop: 12/26/16 00:28 Last Admin: 12/26/16 00:33 Dose: 1 mg Methylprednisolone Sodium Succinate (Solu-Medrol) 62.5 mg IVPUSH ONETIME ONE Stop: 12/26/16 01:11 Last Admin: 12/26/16 01:15 Dose: 62.5 mg Methylprednisolone Sodium Succinate (Solu-Medrol) 40 mg IVPUSH Q8H [facility] Last Admin: 12/27/16 09:04 Dose: 40 mg Prednisone (Prednisone) 40 mg PO ONETIME ONE Stop: 12/25/16 22:48 Last Admin: 12/25/16 23:23 Dose: 40 mg - Exam General: alert, oriented HEENT: Pupils equal, Pupils reactive, EOMI, Mucous membr. moist/pink Neck: supple Lungs: Normal respiratory effort, Wheezing (mild bilateral) Cardiovascular: Regular Rate, Regular Rhythm Abdomen: bowel sounds present, soft, no tenderness, no distension Extremities: no edema - Problem List & Annotations (1) Exacerbation of asthma SNOMED Code(s): 155416103 Code(s): J45.901 - UNSPECIFIED ASTHMA WITH (ACUTE) EXACERBATION Status: Acute Current Visit: Yes - Problem List Review Problem List Initiated/Reviewed/Updated: Yes - My Orders Last 24 Hours: My Active Orders 12/26/16 11:00 Insulin Aspart [NovoLOG] See Protocol SUBCUT QIDACANDBED 12/27/16 04:59 Acetaminophen [Tylenol] 650 mg PO Q4H PRN 12/27/16 09:00 Venlafaxine [Effexor XR] 37.5 mg PO DAILY 12/27/16 21:00 methylPREDNISolone Sod Succ [Solu-MEDROL] 40 mg IVPUSH Q12H 12/28/16 02:00 cefTRIAXone [Rocephin] 1 gm Sodium Chloride 0.9% [Normal Saline] 50 ml IV Q24H 12/28/16 05:15 BASIC METABOLIC PANEL,BMP [CHEM] AM CBC WITH AUTO DIFF [HEME] AM - Plan Plan:: Symptoms started on 20 December. He presented with progressive shortness of breath, fever, cough yellow sputum. 1. acute asthma exacerbation with acute hypoxemic respiratory failure The patient has been on Advair and albuterol p.r.n. inhaler at home. the patient is feeling improved since admission, less cough, has been up and walking around with less shortness of breath. continue to treat with Pulmicort, scheduled DuoNeb, p.r.n. albuterol nebulizer Taper systemic steroids with IV Solu Medrol Supplemental oxygen as needed 2. acute bronchitis blood culture: pending sputum culture: pending leukocytosis is likely at least in part due to the steroids Treat empirically with azithromycin and Rocephin 3. Anxiety Present nebulizers and hospital stay might exacerbate this condition Will use as needed Ativan 4. DVT prophylaxis will be with Lovenox
[2016-12-27] MEDS: Sodium Chloride 0.9% 10 ML Syringe FLUSH PRN ×2 (22:29→22:34)
[2016-12-28] MEDS: Sodium Chloride 0.9% 10 ML Syringe FLUSH PRN ×4 (01:48→08:10)
[2016-12-28] MEDS ORDERED: cefTRIAXone 1 GM in Sodium Chloride 0.9% 50 ML IV SCH (02:00)
[2016-12-28] MEDS: Azithromycin 500 MG in Sodium Chloride 0.9% 250 ML IV SCH (02:28)
[2016-12-28] MEDS: LORazepam 1 MG Tab PO PRN (03:57)
[2016-12-28] MEDS ORDERED: amLODIPine 5 MG Tab PO ONE (05:54)
[2016-12-28] MEDS: Albuterol/Ipratropium 3.0-0.5 MG/3 ML Neb Soln NEB SCH (06:00)
[2016-12-28] MEDS: Budesonide 0.5 MG/2 ML Neb Susp NEB SCH (06:13)
[2016-12-28 07:02] LABS: CHLORIDE,CL 107 mmol/L (101-111); SODIUM,NA 139 mmol/L (135-145)
[2016-12-28] MEDS: Venlafaxine 37.5 MG Cap.ER PO SCH (08:09)
[2016-12-28] MEDS: Montelukast 10 MG Tab PO SCH (08:09)
[2016-12-28] MEDS: Enoxaparin 40 MG/0.4 ML Syringe SUBCUT SCH (08:10)
[2016-12-28] MEDS: methylPREDNISolone Sodium Succinate 40 MG/1 ML SDV IVPUSH SCH (08:10)
[2016-12-28] MEDS: Acetaminophen 325 MG Tab PO PRN (08:26)
[2016-12-28] MEDS: Insulin Aspart 100 Units/ML 3 ML Pen SUBCUT SCH ×2 (10:28→12:33)
[2016-12-28 11:58] VITALS: BP 142/87
--- NOTE | 2016-12-28 12:14 | PCM.DCSUM1 ---
Discharge Summary - Hospital Course Free Text/Narrative:: Symptoms started on 20 December. He presented with progressive shortness of breath, fever, cough yellow sputum. 1. acute asthma exacerbation with acute hypoxemic respiratory failure The patient has been on Advair and albuterol p.r.n. inhaler at home. the patient is feeling improved since admission, less cough, has been up and walking around with less shortness of breath. treated with Pulmicort, DuoNeb, p.r.n. albuterol nebulizer will cont advair, albuterol Taper systemic steroids with medrol 2. acute bronchitis blood culture: neg sputum culture: neg leukocytosis is likely at least in part due to the steroids Treated empirically with azithromycin and Rocephin - will finish tx with Augmentin 3. Anxiety Present nebulizers and hospital stay might exacerbate this condition Will use as needed Ativan cont effexor 4. Noted to have htn started lisinopril follow up with PMD - Discharge Data Discharge Date: 12/28/16 Discharge Disposition: Home, Self-Care 01 Condition: Good - Discharge Diagnosis/Problem(s) (1) Exacerbation of asthma SNOMED Code(s): 126672524 ICD Code: J45.901 - UNSPECIFIED ASTHMA WITH (ACUTE) EXACERBATION Status: Acute Current Visit: Yes - Patient Instructions Diet: Usual Diet as Tolerated Activity: As Tolerated - Discharge Plan Prescriptions/Med Rec: Amoxicillin/Potassium Clav [Augmentin 875-125 Tablet] 1 each PO BID #14 tablet LORazepam [Ativan] 1 mg PO Q6H PRN #22 tablet PRN Reason: Anxiety Lisinopril [Prinivil] 10 mg PO DAILY #30 tablet methylPREDNISolone [Medrol] 4 mg PO ASDIRECTED #1 dospk Home Medications: Home Meds Albuterol Sulfate [Ventolin Hfa] 0 gm IH ASDIRECTED 12/25/16 [History] Fluticasone/Salmeterol [Advair Diskus 100-50] 1 puff INH ASDIRECTED 12/25/16 [ History] Montelukast Sodium [Singulair] 10 mg PO ASDIRECTED 12/25/16 [History] Venlafaxine HCl [Venlafaxine ER] 37.5 mg PO DAILY 12/26/16 [History] Amoxicillin/Potassium Clav [Augmentin 875-125 Tablet] 1 each PO BID #14 tablet 12/28/16 [Rx] LORazepam [Ativan] 1 mg PO Q6H PRN #22 tablet 12/28/16 [Rx] Lisinopril [Prinivil] 10 mg PO DAILY #30 tablet 12/28/16 [Rx] methylPREDNISolone [Medrol] 4 mg PO ASDIRECTED #1 dospk 12/28/16 [Rx] Patient Handouts: Asthma, Adult Referrals: PCP,Unobtain [Ordering Only Provider] - (in 3-4 days) - General Info Admission Dx/Problem (Free Text: Admission Diagnosis/Problem Admission Diagnosis/Problem Asthma 36-year-old gentleman with a history of asthma and anxiety presented with shortness of breath, cough, subjective fever. Functional Status: Reports: pain controlled - Review of Systems General: Denies: Fever, Weakness Pulmonary: Reports: wheezing (much improved). Denies: shortness of breath Cardiovascular: Denies: Chest Pain Gastrointestinal: Denies: Abdominal pain Genitourinary: Denies: dysuria - Patient Data Vitals - Most Recent: Last Vital Signs Temp 37.1 C 12/28/16 11:57 Pulse 93 12/28/16 11:57 Resp 20 12/28/16 11:57 BP 142/87 H 12/28/16 11:57 Pulse Ox 94 L 12/28/16 11:57 Weight - Most Recent: 95.254 kg I&O - Last 24 hours: Intake & Output 12/27/16 12/28/16 12/28/16 22:59 06:59 14:59 Intake Total 1900 250 800 Balance 1900 250 800 Lab Results - Last 24 hrs: Laboratory Results - last 24 hr 12/27/16 12/27/16 12/28/16 Range/Units 16:57 20:47 06:16 WBC 19.6 H (5.0-10.0) 10^3/uL RBC 4.49 L (4.6-6.2) 10^6/uL Hgb 12.8 L (14.0-18.0) g/dL Hct 40.1 (40.0-54.0) % MCV 89.3 (80-100) fL MCH 28.5 (27.0-34.0) pg MCHC 31.9 L (33.0-35.0) g/dL Plt Count 332 (150-450) 10^3/uL Neut % (Auto) 86.5 H (42.2-75.2) % Lymph % (Auto) 9.5 L (20.5-50.1) % [place] % (Auto) 3.8 (2-8) % Eos % (Auto) 0.1 L (1.0-3.0) % Baso % (Auto) 0.1 (0.0-1.0) % Sodium (135-145) mmol/L Potassium (3.6-5.0) mmol/L Chloride (101-111) mmol/L Carbon Dioxide (21.0-31.0) mmol/L Anion Gap BUN (7-18) mg/dL Creatinine (0.6-1.3) mg/dL Est Cr Clr Drug Dosing mL/min Estimated GFR (MDRD) Glucose (74-105) mg/dL POC Glucose 125 H 175 H (70-105) mg/dl Calcium (8.4-10.2) mg/dl 12/28/16 12/28/16 12/28/16 Range/Units 06:16 08:06 11:24 WBC (5.0-10.0) 10^3/uL RBC (4.6-6.2) 10^6/uL Hgb (14.0-18.0) g/dL Hct (40.0-54.0) % MCV (80-100) fL MCH (27.0-34.0) pg MCHC (33.0-35.0) g/dL Plt Count (150-450) 10^3/uL Neut % (Auto) (42.2-75.2) % Lymph % (Auto) (20.5-50.1) % [place] % (Auto) (2-8) % Eos % (Auto) (1.0-3.0) % Baso % (Auto) (0.0-1.0) % Sodium 139 (135-145) mmol/L Potassium 3.9 (3.6-5.0) mmol/L Chloride 107 (101-111) mmol/L Carbon Dioxide 24.0 (21.0-31.0) mmol/L Anion Gap 11.9 BUN 9 (7-18) mg/dL Creatinine 0.7 (0.6-1.3) mg/dL Est Cr Clr Drug Dosing 149.19 mL/min Estimated GFR (MDRD) > 60 Glucose 150 H (74-105) mg/dL POC Glucose 126 H 115 H (70-105) mg/dl Calcium 8.3 L (8.4-10.2) mg/dl [facility] Results - Last 24 hrs: Microbiology 12/26/16 07:46 Gram Stain - Final Sputum - Expectorated Sputum Culture - Preliminary Normal Myrna Med Orders - Current: Current Medications Acetaminophen (Tylenol) 650 mg PO Q4H PRN PRN Reason: Pain Last Admin: 12/28/16 08:26 Dose: 650 mg Albuterol (Proventil Neb Soln) 2.5 mg NEB Q6H PRN PRN Reason: sob Last Admin: 12/27/16 03:34 Dose: 2.5 mg Albuterol/Ipratropium (Duoneb 3.0-0.5 Mg/3 Ml) 3 ml NEB Q8HRRT [facility] Last Admin: 12/28/16 06:00 Dose: 3 ml Budesonide (Pulmicort) 0.5 mg NEB BIDRT [facility] Last Admin: 12/28/16 06:13 Dose: 0.5 mg Docusate Sodium (Colace) 100 mg PO BID PRN PRN Reason: Constipation Enoxaparin Sodium (Lovenox) 40 mg SUBCUT DAILY [facility] Last Admin: 12/28/16 08:10 Dose: 40 mg Azithromycin 500 mg/ Sodium (Chloride) 250 mls @ 250 mls/hr IV Q24H [facility] Last Admin: 12/28/16 02:28 Dose: 250 mls/hr Ceftriaxone Sodium 1 gm/ (Sodium Chloride) 50 mls @ 100 mls/hr IV Q24H [facility] Last Admin: 12/28/16 01:48 Dose: 100 mls/hr Insulin Aspart (Novolog) 0 unit SUBCUT QIDACANDBED [facility] PRN Reason: Protocol Last Admin: 12/28/16 10:28 Dose: Not Given Lisinopril (Prinivil) 10 mg PO DAILY [facility] Lorazepam (Ativan) 1 mg PO Q6H PRN PRN Reason: Anxiety Last Admin: 12/28/16 03:57 Dose: 1 mg Methylprednisolone Sodium Succinate (Solu-Medrol) 40 mg IVPUSH Q12H [facility] Last Admin: 12/28/16 08:10 Dose: 40 mg Montelukast Sodium (Singulair) 10 mg PO DAILY [facility] Last Admin: 12/28/16 08:09 Dose: 10 mg Ondansetron HCl (Zofran Odt) 4 mg PO Q4H PRN PRN Reason: nausea, able to take PO Sodium Chloride (Saline Flush) 10 ml FLUSH ASDIRECTED PRN PRN Reason: Keep Vein Open Last Admin: 12/28/16 08:10 Dose: 10 ml Venlafaxine HCl (Effexor Xr) 37.5 mg PO DAILY [facility] Last Admin: 12/28/16 08:09 Dose: 37.5 mg Zolpidem Tartrate (Ambien) 5 mg PO BEDTIME PRN PRN Reason: Sleep Discontinued Medications Acetaminophen (Tylenol) 650 mg PO NOW ONE Stop: 12/25/16 23:25 Last Admin: 12/25/16 23:43 Dose: 650 mg Albuterol (Proventil Neb Soln) 2.5 mg NEB ONETIME ONE Stop: 12/25/16 22:48 Last Admin: 12/25/16 23:24 Dose: 2.5 mg Albuterol (Proventil Neb Soln) 2.5 mg NEB ONETIME ONE Stop: 12/26/16 01:05 Last Admin: 12/26/16 01:15 Dose: 2.5 mg Albuterol/Ipratropium (Duoneb 3.0-0.5 Mg/3 Ml) 3 ml NEB ONETIME ONE Stop: 12/25/16 22:04 Last Admin: 12/25/16 22:07 Dose: 3 ml Amlodipine Besylate (Norvasc) 5 mg PO ONETIME ONE Stop: 12/28/16 05:55 Last Admin: 12/28/16 06:11 Dose: 5 mg Amoxicillin/Clavulanate Potassium (Augmentin 875 Mg/125 Mg) 1 tab PO ONETIME ONE Stop: 12/25/16 22:50 Last Admin: 12/25/16 23:23 Dose: 1 tab Sodium Chloride (Normal Saline) 1,000 mls @ 999 mls/hr IV .BOLUS ONE Stop: 12/26/16 00:53 Last Admin: 12/25/16 23:57 Dose: 999 mls/hr Sodium Chloride (Normal Saline) 1,000 mls @ 125 mls/hr IV ASDIRECTED [facility] Last Admin: 12/27/16 06:20 Dose: 125 mls/hr Ceftriaxone Sodium 1 gm/ (Sodium Chloride) 50 mls @ 100 mls/hr IV Q24H [facility] Last Admin: 12/27/16 02:10 Dose: 100 mls/hr Ceftriaxone Sodium 1 gm/ (Sodium Chloride) 50 mls @ 100 mls/hr IV Q24H [facility] Ibuprofen (Motrin) 600 mg PO ONETIME ONE Stop: 12/26/16 00:28 Last Admin: 12/26/16 00:33 Dose: 600 mg Lorazepam (Ativan) 1 mg IVPUSH ONETIME ONE Stop: 12/26/16 00:28 Last Admin: 12/26/16 00:33 Dose: 1 mg Methylprednisolone Sodium Succinate (Solu-Medrol) 62.5 mg IVPUSH ONETIME ONE Stop: 12/26/16 01:11 Last Admin: 12/26/16 01:15 Dose: 62.5 mg Methylprednisolone Sodium Succinate (Solu-Medrol) 40 mg IVPUSH Q8H [facility] Last Admin: 12/27/16 09:04 Dose: 40 mg Prednisone (Prednisone) 40 mg PO ONETIME ONE Stop: 12/25/16 22:48 Last Admin: 12/25/16 23:23 Dose: 40 mg - Exam Quality Assessment: Denies: supplemental oxygen General: Reports: alert, oriented Neck: Reports: supple Lungs: Reports: Normal respiratory effort, Wheezing (my) Cardiovascular: Reports: Regular Rate, Regular Rhythm Abdomen: Reports: bowel sounds present, soft, no tenderness, no distension Back Exam: Reports: Normal Inspection, Full Range of Motion Skin: Reports: warm, dry, intact Neurological: Reports: no new focal deficit Psy/Mental Status: Reports: alert, normal affect, normal mood *Q Meaningful Use (DIS) - VTE *Q VTE Criteria *Q: - Stroke *Q Stroke Criteria *Q: - AMI *Q AMI Criteria *Q:
[2016-12-29] MEDS ORDERED: Lisinopril 10 MG Tab PO SCH (09:00)
--- NOTE | 2016-12-29 14:22 | EKG ---
12/26/2016 - JULIANA REYNA - TIME: 01:04 EKG per my reading, shows sinus tachycardia at the rate of 139. [facility] /[id number]
== END 2016-12-28 12:50 | disposition home or self-care (01) | DRG 202 ==
LOC: DL.ED 21:47 → DL.MS 12-26 01:30
PROVIDERS: ADMIT Internal Medicine; ATTEND Internal Medicine
DX: J45.901 Unspecified asthma with (acute) exacerbation (principal); J96.01 Acute respiratory failure with hypoxia; J20.9 Acute bronchitis, unspecified; I10 Essential (primary) hypertension; F41.9 Anxiety disorder, unspecified; Z79.899 Other long term (current) drug therapy
CPT/HCPCS: 36415; 36600; 71020; 80048; 80053; 82803; 82962; 83735; 85025; 85379; 86140; 87040; 87070; 87205; 87804; 93005; 93010; 94010; 94640; 96361; 96374; 96375; 99285; A9270-GY; J0456; J0696; J1650; J1815-GY; J2060; J2920; J2930; J7030; J7050; J7620-GY

== ENCOUNTER 2018-01-24 08:49 | Emergency (ER) | payer SELFPAY ==
[2018-01-24 09:06] VITALS: BP 143/92
== END 2018-01-24 09:24 | disposition left against medical advice (07) ==
LOC: DL.ED 08:49
DX: Z53.21 Procedure and treatment not carried out due to patient leaving prior to being seen by health care provider (principal)